=== PATIENT | female | born 1985 | race African-American/Black ===

== ENCOUNTER 2018-01-23 03:42 | Emergency (ER) | payer SELFPAY ==
[~2018-01-23] VITALS: Ht 170.2 cm; Wt 61.2 kg
--- NOTE | 2018-01-23 04:22 | NUR ---
Patient given written and verbal discharge instructions. Patient verbalizes understanding of instructions. Patient is ambulatory with steady gait. Refuses offer of snf placement. Patient given list of available shelters in surrounding area.
== END 2018-01-23 04:35 | disposition home or self-care (01) ==
LOC: ER 03:42
DX: Z00.00 Encounter for general adult medical examination without abnormal findings (principal)
CPT/HCPCS: A4663